=== PATIENT | female | born 1975 | race Caucasian/White ===

== ENCOUNTER → 2018-03-08 | Outpatient (CLI) | payer MEDICAID ==
[~2018-03-08] VITALS: Ht 162.6 cm; Wt 77.3 kg
[~2018-03-08] MED LIST: ALEVE 220MG220 MG PO; FLEXERIL10 MG PO; GOOD NEIGHBOR200 M1 PO; NO HOME MEDICATIONS; NORCO 325 MG-51 TA1 PO; NORCO 325 MG-51 TAB PO; ORPHENADRINE C100 MG PO; ZOFRAN ODT4 MG PO
[2018-03-08 16:04] VITALS: BP 137/78
== END ==
LOC: AMSURD 15:37
DX: G43.009 Migraine without aura, not intractable, without status migrainosus (principal)
CPT/HCPCS: J1200; J1885; J2405; J7030

== ENCOUNTER → 2021-10-07 | Outpatient (CLI) | payer MEDICAID | LOC: LAB 13:01 → AMSURD 13:01 | DX: Z01.818 Encounter for other preprocedural examination (principal) ==

== ENCOUNTER 2021-11-26 13:09 | Emergency (ER) | payer MEDICAID ==
[~2021-11-26] VITALS: Ht 162.6 cm; Wt 81.8 kg
[2021-11-26 14:54] VITALS: BP 138/88
== END 2021-11-26 14:54 | disposition home or self-care (01) ==
LOC: ED 13:09
DX: G43.909 Migraine, unspecified, not intractable, without status migrainosus (principal)
CPT/HCPCS: J1885; J2765; J7030

== ENCOUNTER 2023-03-09 13:37 | Emergency (ER) | payer MEDICAID ==
[~2023-03-09] VITALS: Ht 167.6 cm; Wt 79.5 kg
[~2023-03-09 13:37] MED LIST changes: +CEPHALEXIN500 M1 PO; +FLOMAX0.4 MG PO; +ONDANSETRON HYDR4 MG PO
[2023-03-09 19:27] VITALS: BP 151/95
== END 2023-03-09 19:27 | disposition home or self-care (01) ==
LOC: ED 13:37
DX: G43.009 Migraine without aura, not intractable, without status migrainosus (principal)
CPT/HCPCS: J1110; J1885; J2550; J7040